=== PATIENT | female | born 1945 | race Caucasian/White ===

== ENCOUNTER → 2016-07-13 | Outpatient (CLI) | payer MEDICARE, BC ==
[~2016-07-13] MED LIST: ZOLP10TA PO; [UNRECOGNIZED DRUG - CODE] PO
== END | disposition home or self-care (01) ==
LOC: HKI 09:57
PROVIDERS: ATTEND Orthopaedic Surgery
DX: S83.242D Other tear of medial meniscus, current injury, left knee, subsequent encounter (principal); S83.272D Complex tear of lateral meniscus, current injury, left knee, subsequent encounter
CPT/HCPCS: G0463

== ENCOUNTER → 2016-09-14 | Outpatient (CLI) | payer MEDICARE, BC | END | disposition home or self-care (01) | LOC: HKI 09:32 | PROVIDERS: ATTEND Orthopaedic Surgery | DX: M17.12 Unilateral primary osteoarthritis, left knee (principal); M25.562 Pain in left knee | CPT/HCPCS: G0463 ==

== ENCOUNTER → 2017-01-25 | Outpatient (CLI) | payer MEDICARE, BC ==
--- NOTE | 2017-01-25 19:17 | RADRPT ---
PROCEDURE: XR Left hip and pelvis. CLINICAL INDICATION: Left hip pain and pelvic pain. TECHNIQUE: 3 views. Frontal pelvis. Frontal and lateral left hip. COMPARISON: 05/04/2016. FINDINGS: There are bilateral total hip arthroplasties which appears satisfactory. There is no fracture, disl ocation, or loosening. 2 screws are present in the superior right acetabulum. There are degenerati ve changes of the lower lumbar spine. There is no lytic lesion. IMPRESSION: 1. Satisfactory postoperative appearance of both hips. 2. Degenerative changes of the lower lumbar spine. 3. No change from 05/04/2016. RPTAT: QQ .Vernon Yu MD, MD Date Time Electronically viewed and signed by .Vernon Yu MD, MD on 01/25/2017 19:16 .R/
== END | disposition home or self-care (01) ==
LOC: HKI 09:44
PROVIDERS: ATTEND Orthopaedic Surgery
DX: M25.552 Pain in left hip (principal); Z96.643 Presence of artificial hip joint, bilateral; T84.84XA Pain due to internal orthopedic prosthetic devices, implants and grafts, initial encounter
CPT/HCPCS: 73502; G0463

== ENCOUNTER → 2017-02-08 | Outpatient (CLI) | payer MEDICARE, BC ==
[~2017-02-08] MED LIST changes: +IOHEXOL 300MG/ML 30 ML BTL ONE; +LIDOCAINE 1% (MDV) 20 ML INJ ONE
--- NOTE | 2017-02-08 15:39 | RADRPT ---
PROCEDURE: Left hip arthrogram and aspiration. CLINICAL INDICATION: Left hip pain. TECHNIQUE: Prior to the procedure, informed consent was obtained. The patient's name, date of , and procedure to be performed were verified. Using local anesthetic, sterile technique and fluo roscopic guidance, a 20-gauge spinal needle was advanced into the left hip joint. Five cc of Omnipa [id number] contrast was injected into the joint. 20 ml of cloudy serous fluid was aspirated and sent f or laboratory analysis. COMPARISON: No prior studies available for comparison. FINDINGS: Images demonstrate a total left hip arthroplasty. Subsequent images demonstrate contrast injection in the joint region. Fluoroscopy time is 0.2 minutes. 8 images were obtained with the image intensi fier. IMPRESSION: 1. Satisfactory left hip arthrogram and aspiration. RPTAT: QQ .Vernon Yu MD, MD Date Time Electronically viewed and signed by .Vernon Yu MD, MD on 02/08/2017 15:39 .R/
[2017-02-08 15:45] LABS: SYN FLD MN % 87.1 &; SYN FLD PMN % 12.9 % (0.0-25.0); SYN FLD WBC 2623 /cmm (0-150)
[2017-02-08 15:54] LABS: SYN FLD CLARITY Turbid; SYN FLD SOURCE HIP FLUID
[2017-02-08 15:58] LABS: SYN FLD COLOR YELLOW; SYN FLD CRYSTALS NO CRYSTALS SEEN (None seen)
== END | disposition home or self-care (01) ==
LOC: RAD 13:08
PROVIDERS: ATTEND Orthopaedic Surgery
DX: M25.552 Pain in left hip (principal); Z96.642 Presence of left artificial hip joint
CPT/HCPCS: 20610; 27093; 73525; 77002; 87070; 87075; 89060; Q9967